=== PATIENT | female | born 1960 ===

== ENCOUNTER 2025-08-07 08:04 | Inpatient (IN) | payer OTHER ==
[~2025-08-07] VITALS: Ht 157.5 cm; Wt 93.4 kg
[2025-08-07 07:47] VITALS: BP 116/68; BP 127/78
[~2025-08-07 08:04] MED LIST: AMLODIPINE-OLM1 EACH PO; COZAAR100 MG PO; GRALISE600 MG PO; LANSOPRAZOLE; NABUMETONE750 MG PO; SYNTHROID50 MCG PO
[2025-08-07 08:05] LABS: COVID-19 AG NEGATIVE (NEGATIVE)
[2025-08-07 10:10] LABS: RH POSITIVE
[2025-08-10] MEDS ORDERED: METRONIDAZOLE/SODIUM CHLORIDE 500 MG/100 ML PIGGYBACK IV ONE (07:30)
[2025-08-10] MEDS ORDERED: SURGIFLO APPLICATOR 1 EACH APPL TOP ONE (07:30)
[2025-08-10] MEDS ORDERED: CEFAZOLIN SODIUM 1,000 MG VIAL IV ONE (07:30)
[2025-08-10] MEDS ORDERED: HEMOSTATIC MATRIX 1 KIT KIT TOP ONE (07:30)
[2025-08-10] MEDS ORDERED: POVIDONE-IODINE 118 ML BOTT TOP ONE (07:30)
[2025-08-10] MEDS ORDERED: RINGERS SOLUTION,LACTATED 1,000 ML IV SCH (08:45)
[2025-08-10] MEDS ORDERED: OxyCODONE HCL 5 MG TABLET (ROXICODONE) PO PRN (08:45)
[2025-08-10] MEDS ORDERED: MORPHINE SULFATE 4 MG/ML CARTRIDGE IV PRN (08:45)
[2025-08-10] MEDS ORDERED: SUGAMMADEX SODIUM 200 MG/2 ML VIAL IV ONE ×2 (09:00)
[2025-08-10] MEDS ORDERED: CEFAZOLIN SODIUM 1,000 MG VIAL IV SCH (09:00)
[2025-08-10] MEDS ORDERED: DOCUSATE SODIUM 100MG CAP PO SCH (09:00)
[2025-08-10] MEDS ORDERED: GABAPENTIN 300 MG CAPSULE PO SCH (09:00)
[2025-08-10] MEDS ORDERED: FAMOTIDINE/PF 20 MG/2 ML VIAL IV PUSH SCH (09:00)
[2025-08-10] MEDS ORDERED: SIMETHICONE 125 MG CAPSULE PO SCH (09:00)
[2025-08-10] MEDS ORDERED: CEFAZOLIN SODIUM 1,000 MG VIAL ONE (11:00)
[2025-08-10] MEDS ORDERED: FAMOTIDINE/PF 20 MG/2 ML VIAL ONE (11:00)
[2025-08-10 11:59] LABS: BASO % 0.4 % (0.1-1.2); EOS # 0.04 (0.04-0.54); EOS % 0.4 % (0.7-7.0); LYMPH # 1.43 (1.18-3.74); LYMPH % 13.7 % (19.3-53.1); MEAN PLATELET VOLUME 10.90 fl (9.4-12.4); MONO # 0.43 (0.24-0.82); MONO % 4.1 % (4.7-12.5); NEUT # 8.45 (1.56-6.13); NEUT % 81.0 % (34.0-71.1); RED CELL DISTRIBUTION WIDTH 13.4 % (11.6-14.4)
[2025-08-10] MEDS ORDERED: KETOROLAC TROMETHAMINE 30 MG VIAL IM SCH (12:00)
[2025-08-10] MEDS ORDERED: KETOROLAC TROMETHAMINE 30 MG VIAL ONE (12:37)
[2025-08-10 12:50] LABS: BUN CREA RATIO 19.0 (7.0-25.0); CREATININE SERUM 0.64 mg/dL (0.55-1.02); GFR 93.13; GLUCOSE FASTING 105.0 mg/dL (65-100); OSMOLALITY SERUM 283.0 MOSM/KG (275-295)
[2025-08-10 14:09] VITALS: BP 116/68
[2025-08-10 16:16] VITALS: BP 112/72
[2025-08-10 20:35] VITALS: BP 93/60
[2025-08-11] VITALS: BP 102/61; O2SAT 98
[2025-08-11 06:40] LABS: BASO % 0.3 % (0.1-1.2); EOS # 0.21 (0.04-0.54); EOS % 2.3 % (0.7-7.0); LYMPH # 2.22 (1.18-3.74); LYMPH % 24.7 % (19.3-53.1); MEAN PLATELET VOLUME 10.80 fl (9.4-12.4); MONO # 0.60 (0.24-0.82); MONO % 6.7 % (4.7-12.5); NEUT # 5.90 (1.56-6.13); NEUT % 65.8 % (34.0-71.1); RED CELL DISTRIBUTION WIDTH 13.7 % (11.6-14.4)
[2025-08-11 07:06] LABS: BUN CREA RATIO 14.0 (7.0-25.0); CREATININE SERUM 0.69 mg/dL (0.55-1.02); GFR 85.38; GLUCOSE FASTING 92.0 mg/dL (65-100); OSMOLALITY SERUM 287.0 MOSM/KG (275-295)
[2025-08-11 08:45] VITALS: BP 103/66; O2SAT 98
[2025-08-11] MEDS ORDERED: ENOXAPARIN SODIUM 40 MG/0.4 ML SYRINGE SUBCUTANEO SCH (09:00)
== END 2025-08-11 10:54 | disposition home or self-care (01) | DRG 741 ==
LOC: O/R 08-10 06:00 → OB/GYN 08-10 06:00
PROVIDERS: ADMIT Obstetrics & Gynecology Gynecologic Oncology; ATTEND Obstetrics & Gynecology Gynecologic Oncology
PROC: 0UT74ZZ Resection of Bilateral Fallopian Tubes, Percutaneous Endoscopic Approach (ICD-10-PCS; 2025-08-10)
PROC: 0UT24ZZ Resection of Bilateral Ovaries, Percutaneous Endoscopic Approach (ICD-10-PCS; 2025-08-10)
PROC: 07BC4ZZ Excision of Pelvis Lymphatic, Percutaneous Endoscopic Approach (ICD-10-PCS; 2025-08-10)
PROC: 8E0W4CZ Robotic Assisted Procedure of Trunk Region, Percutaneous Endoscopic Approach (ICD-10-PCS; 2025-08-10)
PROC: 0UT94ZZ Resection of Uterus, Percutaneous Endoscopic Approach (ICD-10-PCS; principal; 2025-08-10 07:00)
DX: C54.1 Malignant neoplasm of endometrium (principal); D25.9 Leiomyoma of uterus, unspecified; D36.0 Benign neoplasm of lymph nodes
CPT/HCPCS: 58548; S2900